=== PATIENT | female | born 1965 | race Caucasian/White ===

== ENCOUNTER 2018-09-25 11:48 | Observation (INO) | payer OTHER ==
[~2018-09-25] VITALS: Ht 167.6 cm; Wt 68.0 kg
[2018-09-25 12:31] LABS: Hemoglobin 16.4 g/dL (12.2-16.2)
[2018-09-25 12:33] LABS: Hematocrit 48.2 % (36.0-46.0); Mean Corpuscular Hemoglobin 32.3 pg (28.0-32.0); Mean Corpuscular Volume 95.1 fL (80.0-100.0); Platelet Count (auto) 510 10^3/uL (140-450); Red Blood Cells 5.07 10^6/uL (4.0-5.20); Red Cell Distribution Width 13.2 % (11.8-14.3); White Blood Cell 25.4 10^3/uL (4.4-10.8)
[2018-09-25 12:44] LABS: Basophils % (manual) 0 (0.0-2.0); Blast Cells 0; Metamyelocytes % 0; Promyelocytes % 0; Reactive Lymphocytes 0
[2018-09-25] MEDS ORDERED: SODIUM CHLORIDE 0.9% 1,000 ML IVB ONE (12:47)
[2018-09-25 12:55] LABS: Anion Gap 7 (5-15); BUN/Creatinine Ratio 20.2; Blood Urea Nitrogen 19 mg/dL (7-18); Calcium 9.5 mg/dL (8.5-10.1); Carbon Dioxide 22 mmol/L (21-32); Chloride 108 mmol/L (98-107); GFR African American 80 mL/min; GFR Non-African American 66 mL/min; Glucose 163 mg/dL (74-106); Magnesium 2.2 mg/dL (1.6-2.6); Potassium 3.1 mmol/L (3.5-5.1); Sodium 137 mmol/L (136-145)
[2018-09-25] MEDS ORDERED: MORPHINE SULFATE 4 MG/ML SYR/VIAL IV ONE (13:00)
[2018-09-25] MEDS: PROMETHAZINE HCL 25 MG/ML 1ML IV PRN ×3 (13:00→20:01)
[2018-09-25 13:05] LABS: Alanine Aminotransferase 33 U/L (13-56); Alkaline Phosphatase 97 U/L (45-117); Aspartate Aminotransferase 24 U/L (15-37); Bilirubin, Total 0.3 mg/dL (0.2-1.0); Total Protein 8.1 g/dL (6.4-8.2)
[2018-09-25 13:57] LABS: Band Neutrophils % (manual) 3; Eosinophils % (manual) 1 (0-7); Lymphocytes % (manual) 35 (10.0-50.0); Monocytes % (manual) 4 (0-12); Myelocytes % 1
[2018-09-25 13:58] LABS: Amylase 2772 U/L (25-115)
[2018-09-25 14:11] LABS: Lactic Acid w/Reflex 3.1 mmol/L (0.4-2.0)
[2018-09-25 14:40] LABS: Lipase 77720 U/L (73-393)
[2018-09-25] MEDS ORDERED: HYDROmorphone HCL 2 MG/ML VL IV ONE ×2 (14:45→19:45)
[2018-09-25] MEDS ORDERED: PROMETHAZINE HCL 25 MG/ML 1ML IV ONE (17:15)
[2018-09-25] MEDS ORDERED: SODIUM CHLORIDE 0.9% 1,000 ML IV ONE ×2 (17:15)
[2018-09-25] MEDS ORDERED: ONDANSETRON HCL 4 MG/2 ML VIAL IV ONE ×2 (17:45→19:45)
[2018-09-25 18:13] LABS: Urine Bacteria FEW /hpf (None Seen); Urine Blood 1+ /uL (Negative); Urine Mucus FEW (None Seen); Urine Specific Gravity 1.024 (1.001-1.035); Urine WBC 2 /hpf (0 - 5)
[2018-09-25] MEDS ORDERED: PANTOPRAZOLE 40 MG/10 ML VIAL IV ONE (18:30)
[2018-09-25] MEDS ORDERED: POTASSIUM CHL 20MEQ/100ML 100 ML IV SCH (19:15)
[2018-09-25] MEDS ORDERED: cefTRIAXone 1GM/50ML D5W 50 ML IV ONE (19:15)
[2018-09-25 23:14] VITALS: BP 150/74
== END 2018-09-25 23:19 | disposition short-term general hospital (02) | DRG 438 ==
LOC: ER 11:48 → EDBD 11:48 → OVERFLOW 12:49 → ER 23:19
PROVIDERS: ADMIT Family Medicine; ATTEND Family Medicine
DX: K85.00 Idiopathic acute pancreatitis without necrosis or infection (principal); A41.9 Sepsis, unspecified organism; K86.3 Pseudocyst of pancreas; E87.6 Hypokalemia; R10.9 Unspecified abdominal pain; R11.2 Nausea with vomiting, unspecified; F17.210 Nicotine dependence, cigarettes, uncomplicated; F12.10 Cannabis abuse, uncomplicated
CPT/HCPCS: 36415; 71045; 74176; 80053; 81001; 81025; 82150; 83605; 83690; 83735; 84484; 85007; 85027; 87040; 93005; 96361; 96365; 96366; 96367; 96375; 96376; 99291; C9113; G0378; J0696; J1170; J2270; J2405; J2550; J3480; J7030